=== PATIENT | male | born 1955 | race Caucasian/White ===

== ENCOUNTER → 2023-11-08 08:45 | Outpatient (BNVA) | payer MEDICARE, SELFPAY | PROVIDERS: PCP Family Medicine; Visit Provider Family Medicine | DX: Z00.00 Encounter for general adult medical examination without abnormal findings (principal) | CPT/HCPCS: 80053; 80061; 84153 ==

== ENCOUNTER → 2023-11-14 14:30 | Outpatient (BNVA) | payer MEDICARE, SELFPAY | PROVIDERS: PCP Family Medicine; Referring Provider Family Medicine; Visit Provider Surgery | DX: Z12.11 Encounter for screening for malignant neoplasm of colon (principal) | CPT/HCPCS: 99024; 99203 ==

== ENCOUNTER → 2023-11-15 10:21 | Outpatient (BNVA) | payer MEDICARE, SELFPAY | PROVIDERS: PCP Family Medicine; Visit Provider Family Medicine | DX: R73.9 Hyperglycemia, unspecified (principal) | CPT/HCPCS: 83036 ==

== ENCOUNTER 2024-01-30 08:45 | Day surgery (SDC) | payer MEDICARE, SELFPAY ==
[2024-01-30 09:04] VITALS: BP 141/80; PULSE 73; RESP 16; TEMP 36.2; O2SAT 99; BMI 23.7
--- NOTE | 2024-01-30 09:09 | ANES.PREANE2 ---
Pre-Anesthetic Assessment Height/Weight: Height 1.88 m Weight 83.915 kg Temp Pulse Resp BP Pulse Ox O2 Del Method 97.1 F L 73 16 141/80 99 Room Air 01/30/24 09:04 01/30/24 09:04 01/30/24 09:04 01/30/24 09:04 01/30/24 09:04 01/30/24 09:04 Preop Diagnosis: Screening Operation Date: 01/30/24 09:40 Proposed Procedures p 85354 colon G0121 screen colon a risk Z12.11(Not Applicable) - Preet Marshall MD Familial anesthetic complications: None Was Beta Guillermo taken within 24 hours: N/A Was Clonidine taken within 24 hours: N/A Last intake: Intake Last Liquid Date 01/29/24 Last Liquid Time 23:30 Last Solid Date 01/29/24 Last Solid Time 10:00 Social Alcohol (2-4 beers/day) and Tobacco 1 pack(s) per day Exam alert, oriented x 3, clear to auscultation bilaterally and regular rate & rhythm Airway Submandibular: within normal limits Cervical ROM: within normal limits Mallampati: Class II Dentition: chipped (Broken) Comments: Comments: Missing teeth/poor dentition History/ROS No significant history except as noted and No significant complaints Pulmonary Cough and Exertional Dyspnea CV/HEM Coronary Artery Disease and Hypertension None reported Hepatic None reported GI None reported Metabolic Diabetes Mellitus and Hyperlipidemia Musc/sk Lower Back Pain and Osteoarthritis/DJD Neuropsych Neuropathy Anesthetic Plan ASA status: 2 Anesthesia: Anesthesia Evaluation, General and MAC Risk of > 500 ml blood loss (7ml/kg in children): No Medications/Allergies Home Medications Medication Instructions Recorded Confirmed Last Taken Type No Known Home Medications 11/07/23 01/28/24 Unknown History Allergies Allergy/AdvReac Type Severity Reaction Status Date / Time No Known Allergies Allergy Verified 01/28/24 08:31 REPLACED BY [facility] Anesthesia Medical History (Updated 12/24/23 @ 19:40 by Jose Denson MD) Diabetes mellitus type 2, controlled Family History (Updated 11/14/23 @ 15:12 by CARLEY Ellis) Father Diabetes Cancer colon Mother Parkinson disease Sister Cancer Brain cancer Social History (Updated 11/14/23 @ 15:13 by CARLEY Ellis) Smoking and tobacco/nicotine status: current every day tobacco/nicotine user Quit status (tobacco/nicotine): considering quitting Alcohol intake: current Alcohol intake frequency: 0-2 Drinks per Day Alcohol type: beer and hard liquor Substance/Drug Use: current Additional social history: cbd gummies Data Anesthesia Cardiac Studies: No Data to Display
[2024-01-30] MEDS: sodium chloride 0.9% 1,000 ML 30 ML IV (09:12)
--- NOTE | 2024-01-30 09:45 | W.PM.OPSFHP ---
Same Day Surgery H&P Indication for Procedure/HPI DATE OF PROCEDURE: January 30, 2024 CHIEF COMPLAINT/INDICATIONFOR SURGICAL PROCEDURE: need for screening colonoscopy PREOP DIAGNOSIS: Screening PLANNED PROCEDURE: Operation Date: 01/30/24 09:40 Proposed Procedures p 09752 colon G0121 screen colon a risk Z12.11(Not Applicable) - Preet Marshall MD Medications/Allergies* Home Medications Medication Instructions Recorded Confirmed Type No Known Home Medications 11/07/23 01/28/24 History Allergies/Adverse Reactions Allergy/AdvReac Type Severity Reaction Status Date / Time No Known Allergies Allergy Verified 01/28/24 08:31 Current Medications: Generic Name Dose Route Start Last Admin Trade Name Freq PRN Reason Stop Dose Admin Sodium Chloride 1,000 mls @ 30 mls/hr 01/30/24 09:00 01/30/24 09:12 Sodium Chloride 0.9% IV 30 mls/hr .Q24H ASHU Administration Pertinent History/Comorbid Conditions* Medical History (Updated 12/24/23 @ 19:40 by oJse Denson MD) Diabetes mellitus type 2, controlled Family History (Updated 11/14/23 @ 15:12 by CARLEY Ellis) Brain cancer Sister Diabetes Father Cancer Father colon Sister Parkinson disease Mother Social History Smoking and tobacco/nicotine status: current every day tobacco/nicotine user Quit status (tobacco/nicotine): considering quitting Alcohol intake: current Alcohol intake frequency: 0-2 Drinks per Day Alcohol type: beer and hard liquor Substance/Drug Use: current Additional social history: cbd gummies Pertinent Exam Findings alert, oriented x 3 and clear to auscultation bilaterally Recommendations Surgery/Procedure today Coding Level of Care Code Acute Code for Chg Izaiah
[2024-01-30 11:07] VITALS: BP 111/69; PULSE 53; RESP 20; TEMP 36.1; O2SAT 100
[2024-01-30 11:20] VITALS: BP 114/69; PULSE 62; RESP 18; O2SAT 100
--- NOTE | 2024-01-30 14:24 | ANE.PACU2 ---
Inpatient post-anesthesia follow up: Airway intact: Yes Vital signs: Temperature 97 F Pulse Rate 62 Respiratory Rate 18 Blood Pressure 114/69 Pulse Oximetry 100 Oxygen Delivery Me thod Room Air Oxygen Flow Rate 2 Fraction of Inspir ed Oxygen Hydration adequate: Yes Nausea and vomiting: No Pain level: 2 Mental status: Baseline
== END 2024-01-30 11:45 | disposition home or self-care (01) ==
PROVIDERS: PCP Family Medicine; Visit Provider Surgery
PROC: 0DJD8ZZ Inspection of Lower Intestinal Tract, Via Natural or Artificial Opening Endoscopic (ICD-10-PCS; CPT 45378; principal; 2024-01-30 09:40)
DX: Z12.11 Encounter for screening for malignant neoplasm of colon (principal); D12.4 Benign neoplasm of descending colon; D12.5 Benign neoplasm of sigmoid colon; D12.8 Benign neoplasm of rectum; F17.200 Nicotine dependence, unspecified, uncomplicated; I25.10 Atherosclerotic heart disease of native coronary artery without angina pectoris; I10 Essential (primary) hypertension; E78.5 Hyperlipidemia, unspecified; E11.40 Type 2 diabetes mellitus with diabetic neuropathy, unspecified
CPT/HCPCS: 45380; 45385; 88305; J2704; J7030

== ENCOUNTER → 2024-02-12 09:06 | Outpatient (BNVA) | payer MEDICARE, SELFPAY | PROVIDERS: PCP Family Medicine; Visit Provider Surgery | DX: Z09 Encounter for follow-up examination after completed treatment for conditions other than malignant neoplasm (principal) | CPT/HCPCS: 99213 ==

== ENCOUNTER → 2024-03-03 12:21 | Outpatient (BNVA) | payer MEDICARE, SELFPAY | PROVIDERS: PCP Family Medicine; Visit Provider Family Medicine | DX: R73.9 Hyperglycemia, unspecified (principal) | CPT/HCPCS: 83036 ==

== ENCOUNTER → 2024-09-01 10:07 | Outpatient (BNVA) | payer MEDICARE, SELFPAY | PROVIDERS: PCP Family Medicine; Visit Provider Family Medicine | DX: I10 Essential (primary) hypertension (principal); N18.9 Chronic kidney disease, unspecified; E11.9 Type 2 diabetes mellitus without complications | CPT/HCPCS: 80053; 80061; 83036; 85025 ==

== ENCOUNTER → 2024-09-08 09:06 | Outpatient (BNVA) | payer MEDICARE, SELFPAY | PROVIDERS: PCP Family Medicine; Visit Provider Family Medicine | DX: D69.6 Thrombocytopenia, unspecified (principal); E11.65 Type 2 diabetes mellitus with hyperglycemia | CPT/HCPCS: 80053; 80061; 80503; 83036; 85007; 85027 ==

== ENCOUNTER 2024-09-28 13:38 | Oncology outpatient (recurring) (ONCR) | payer MEDICARE, SELFPAY ==
[2024-09-28 14:06] LABS: Basophils % 0.4 %; Eosinophils # 0.1 10^3/uL (0.0-0.8); Hematocrit 39.4 % (37-53); Lymphocytes # 1.4 10^3/uL (0.8-4.8); Lymphocytes % 25.6 %; Mean Corpuscular HGB Conc 33.2 g/dL (30-55); Mean Corpuscular Volume 96.3 fl (82-101); Mean Platelet Volume 12.6 fL (7.4-10.4); Monocytes # 0.5 10^3/uL (0.2-0.9); Monocytes % 8.5 %; Neutrophils # 3.55 10^3/uL (1.8-7.7); Neutrophils % 63.1 %; Nucleated Red Blood Cells % 0 %; Platelet Count 130 10^3/cmm (157-399); Red Blood Count 4.09 10^6/uL (3.85-5.65); Red Cell Distribution Width 14.3 % (12.1-15.1); White Blood Count 5.62 10^3/uL (3.29-11.43)
[2024-09-28 15:26] LABS: Alanine Aminotransferase 32 U/L (0-41); Albumin Level 3.6 g/dL (3.5-5.2); Alkaline Phosphatase 73 U/L (40-130); Anion Gap 12.2 (5-19); Aspartate Amino Transferase 25 U/L (0-40); Blood Urea Nitrogen 13 mg/dL (8-23); Calcium 8.7 mg/dL (8.5-10.5); Carbon Dioxide 25 mmol/L (22-29); Chloride 98 mmol/L (98-107); Creatinine Clr Calc Pharmacy 95.0095; Globulin 4.5 g/dL (1.3-4.6); Glomerular Filtration Rate 84.2 mL/min (90-130); Glucose 252 mg/dL (65-115); Lactate Dehydrogenase 192 U/L (135-225); Osmolality Calculated 281 mOsm/kg (285-295); Potassium 4.2 mmol/L (3.5-5.1); Sodium 131 mmol/L (136-145); Total Bilirubin 0.7 mg/dL (0.15-1.2); Total Protein 8.1 g/dL (6.6-8.7)
== END 2024-10-01 23:59 | disposition home or self-care (01) ==
PROVIDERS: PCP Family Medicine; Visit Provider Internal Medicine Hematology & Oncology
DX: D69.6 Thrombocytopenia, unspecified (principal)
CPT/HCPCS: 36415; 80053; 83010; 83615; 85025; 99204

== ENCOUNTER 2024-11-30 11:00 | Oncology outpatient (recurring) (ONCR) | payer MEDICARE, SELFPAY ==
[2024-11-30 11:45] LABS: Basophils % 0.5 %; Eosinophils # 0.1 10^3/uL (0.0-0.8); Eosinophils % 0.9 %; Hematocrit 38.7 % (37-53); Lymphocytes # 1.5 10^3/uL (0.8-4.8); Lymphocytes % 26.5 %; Mean Corpuscular HGB Conc 32.8 g/dL (30-55); Mean Corpuscular Hemoglobin 31.4 pg (27-33); Mean Corpuscular Volume 95.6 fl (82-101); Mean Platelet Volume 12.8 fL (7.4-10.4); Monocytes # 0.5 10^3/uL (0.2-0.9); Monocytes % 8.4 %; Neutrophils # 3.53 10^3/uL (1.8-7.7); Neutrophils % 63.2 %; Nucleated Red Blood Cells % 0 %; Platelet Count 94 10^3/cmm (157-399); Red Blood Count 4.05 10^6/uL (3.85-5.65); Red Cell Distribution Width 13.8 % (12.1-15.1); White Blood Count 5.59 10^3/uL (3.29-11.43)
[2024-11-30 12:03] LABS: Alanine Aminotransferase 30 U/L (0-41); Albumin Level 3.6 g/dL (3.5-5.2); Alkaline Phosphatase 72 U/L (40-130); Anion Gap 13.3 (5-19); Aspartate Amino Transferase 39 U/L (0-40); Blood Urea Nitrogen 13 mg/dL (8-23); Calcium 9.5 mg/dL (8.5-10.5); Carbon Dioxide 24 mmol/L (22-29); Chloride 99 mmol/L (98-107); Creatinine Clr Calc Pharmacy 93.5842; Glomerular Filtration Rate 84.2 mL/min (90-130); Glucose 217 mg/dL (65-115); Osmolality Calculated 281 mOsm/kg (285-295); Potassium 4.3 mmol/L (3.5-5.1); Sodium 132 mmol/L (136-145); Total Bilirubin 0.8 mg/dL (0.15-1.2); Total Protein 8.6 g/dL (6.6-8.7)
[2024-11-30 12:23] LABS: Slide Review Slide Review Perform
== END 2024-12-01 23:59 | disposition home or self-care (01) ==
PROVIDERS: PCP Family Medicine; Visit Provider Internal Medicine Hematology & Oncology
DX: D69.6 Thrombocytopenia, unspecified (principal)
CPT/HCPCS: 36415; 80053; 83010; 85025; 99214

== ENCOUNTER → 2024-12-08 10:20 | Outpatient (BNVA) | payer MEDICARE, SELFPAY | PROVIDERS: PCP Family Medicine; Visit Provider Family Medicine | DX: R73.9 Hyperglycemia, unspecified (principal) | CPT/HCPCS: 83036 ==

== ENCOUNTER 2025-01-18 08:00 | Oncology outpatient (recurring) (ONCR) | payer MEDICARE, SELFPAY ==
[2025-01-18 08:27] LABS: Basophils % 0.4 %; Eosinophils # 0.1 10^3/uL (0.0-0.8); Eosinophils % 2.9 %; Hematocrit 39.2 % (37-53); Lymphocytes # 1.2 10^3/uL (0.8-4.8); Lymphocytes % 25.5 %; Mean Corpuscular HGB Conc 32.9 g/dL (30-55); Mean Corpuscular Hemoglobin 32.2 pg (27-33); Mean Corpuscular Volume 97.8 fl (82-101); Mean Platelet Volume 12.2 fL (7.4-10.4); Monocytes # 0.6 10^3/uL (0.2-0.9); Monocytes % 11.3 %; Neutrophils % 59.5 %; Nucleated Red Blood Cells % 0 %; Platelet Count 109 10^3/cmm (157-399); Red Blood Count 4.01 10^6/uL (3.85-5.65); Red Cell Distribution Width 15.7 % (12.1-15.1); White Blood Count 4.87 10^3/uL (3.29-11.43)
[2025-01-18 08:45] LABS: Alanine Aminotransferase 34 U/L (0-41); Albumin Level 3.6 g/dL (3.5-5.2); Alkaline Phosphatase 76 U/L (40-130); Anion Gap 15.2 (5-19); Aspartate Amino Transferase 36 U/L (0-40); Blood Urea Nitrogen 13 mg/dL (8-23); Calcium 9.4 mg/dL (8.5-10.5); Carbon Dioxide 25 mmol/L (22-29); Chloride 99 mmol/L (98-107); Creatinine Clr Calc Pharmacy 108.4952; Globulin 5.3 g/dL (1.3-4.6); Glomerular Filtration Rate 96.4 mL/min (90-130); Glucose 194 mg/dL (65-115); Osmolality Calculated 285 mOsm/kg (285-295); Potassium 4.2 mmol/L (3.5-5.1); Sodium 135 mmol/L (136-145); Total Bilirubin 1.1 mg/dL (0.15-1.2); Total Protein 8.9 g/dL (6.6-8.7)
== END 2025-01-29 23:59 | disposition home or self-care (01) ==
PROVIDERS: PCP Family Medicine; Visit Provider Internal Medicine Medical Oncology
DX: D69.6 Thrombocytopenia, unspecified (principal); Z87.891 Personal history of nicotine dependence; F10.90 Alcohol use, unspecified, uncomplicated
CPT/HCPCS: 36415; 80053; 85025; 99214

== ENCOUNTER → 2025-03-09 09:06 | Outpatient (BNVA) | payer MEDICARE, SELFPAY | PROVIDERS: PCP Family Medicine; Visit Provider Family Medicine | DX: E11.9 Type 2 diabetes mellitus without complications (principal); D69.6 Thrombocytopenia, unspecified | CPT/HCPCS: 80053; 83036; 85025 ==

== ENCOUNTER 2025-07-19 08:07 | Oncology outpatient (recurring) (ONCR) | payer MEDICARE, SELFPAY ==
[2025-07-19 08:36] LABS: Hematocrit 35.1 % (37-53); Hemoglobin 11.30 g/dL (11.27-16.99); Mean Corpuscular HGB Conc 32.2 g/dL (30-55); Mean Corpuscular Hemoglobin 31.6 pg (27-33); Mean Corpuscular Volume 98.0 fl (82-101); Nucleated Red Blood Cells % 0.4 %; Platelet Count 90 10^3/cmm (157-399); Red Blood Count 3.58 10^6/uL (3.85-5.65); White Blood Count 4.74 10^3/uL (3.29-11.43)
[2025-07-19 09:07] LABS: Slide Review Slide Review Perform
[2025-07-19 09:19] LABS: Alanine Aminotransferase 51 U/L (0-41); Albumin Level 3.4 g/dL (3.5-5.2); Alkaline Phosphatase 88 U/L (40-130); Anion Gap 10.2 (5-19); Aspartate Amino Transferase 64 U/L (0-40); Blood Urea Nitrogen 16 mg/dL (8-23); Calcium 9.3 mg/dL (8.5-10.5); Carbon Dioxide 24 mmol/L (22-29); Chloride 103 mmol/L (98-107); Creatinine Clr Calc Pharmacy 86.7962; Globulin 4.7 g/dL (1.3-4.6); Glucose 179 mg/dL (65-115); Osmolality Calculated 282 mOsm/kg (285-295); Potassium 4.2 mmol/L (3.5-5.1); Sodium 133 mmol/L (136-145); Total Protein 8.1 g/dL (6.6-8.7); Vitamin B12 843 pg/mL (232-1245)
== END 2025-08-01 23:59 | disposition home or self-care (01) ==
PROVIDERS: PCP Family Medicine; Visit Provider Internal Medicine Medical Oncology
DX: D69.6 Thrombocytopenia, unspecified (principal); Z87.891 Personal history of nicotine dependence; F10.90 Alcohol use, unspecified, uncomplicated; R16.0 Hepatomegaly, not elsewhere classified; R14.0 Abdominal distension (gaseous)
CPT/HCPCS: 36415; 80053; 82607; 82746; 85025; 99214

== ENCOUNTER → 2025-09-14 08:26 | Outpatient (BNVA) | payer MEDICARE, SELFPAY | PROVIDERS: PCP Family Medicine; Visit Provider Family Medicine | DX: Z00.00 Encounter for general adult medical examination without abnormal findings (principal); E11.9 Type 2 diabetes mellitus without complications; D69.6 Thrombocytopenia, unspecified; R16.0 Hepatomegaly, not elsewhere classified | CPT/HCPCS: 80053; 80061; 83036; 85025; 86140 ==

== ENCOUNTER 2025-09-22 12:48 | Oncology outpatient (recurring) (ONCR) | payer MEDICARE, SELFPAY ==
--- NOTE | 2025-09-22 13:00 | CT_ITS ---
WS: [id number] CT ABDOMEN AND PELVIS WITH CONTRAST HISTORY: abd pain/ bloating TECHNIQUE: Imaging performed of the abdomen and pelvis with IV contrast. Single phase imaging of the abdomen. Coronal and sagittal reformats are submitted. All CT scans at [facility] use at least one of these dose optimization techniques: automated exposure control; mA and/or kV adjustment per patient size (includes targeted exams where dose is matched to clinical indication); or iterative reconstruction. IV CONTRAST: Omnipaque 350; 100 mL IV. Oral contrast: Yes. DLP: 709.32 mGy.cm COMPARISON: None available. Lower thorax: Pleural-based nodule RIGHT lower lobe measures 1.5 cm. There is mild volume loss and curvilinear densities adjacent to this nodule. This could be an area of atelectasis but will need to be further evaluated. There is a soft tissue mass in the IVC measuring 4.1 x 2.8 cm. No hiatal hernia. Liver/biliary system: Small shrunken cirrhotic liver. No hypervascular mass identified. Low-attenuation 8 mm nodule along the falciform ligament. Portal vein appears patent. The soft tissue mass centered in the IVC does extend into the central hepatic veins. Partial occlusion of the proximal hepatic veins. Budd-Chiari syndrome should be considered. Gallbladder: Normally distended gallbladder with cholelithiasis. Pancreas: Normal size pancreas and pancreatic duct. No adjacent inflammation. Spleen: Normal size spleen. No mass or infarct. Adrenal glands: Normal. Right kidney: Normal. Left kidney: Normal. Aorta: Mild atherosclerosis with no aneurysm. Lymphadenopathy: Mild nodularity in the omentum. There are a few small scattered lymph nodes. Small lymph nodes in the inguinal regions. Free fluid: There is a. GI tract: No GI tract obstruction. There is a peripherally calcified mass in the RIGHT lower quadrant measuring 3.4 x 4.1 cm. This mass is closely associated with the distal small bowel. The appendix is not definitely identified. There is omental nodularity and soft tissue prominence. Mild scalloping along the surfaces of the ascites. Mild nodularity and thickening of the pararenal fascia and along the paracolic gutters. Abdominal wall: Unremarkable abdominal wall. No hernia. Pelvis: Free fluid in the pelvis. Urinary bladder is not distended. Bladder is being compressed by the ascites. Bones: Anterior wedging of T12 with a Schmorl's node. CT/CT abdomen pelvis w con* [id number] IMPRESSION: 1. Soft tissue mass measuring 4.1 x 2.8 cm in the IVC. There is slight extensi on from the IVC into the proximal hepatic veins. There is slight protrusion int o the RIGHT atrium. Differential includes bland thrombus, tumor thrombus or lei omyosarcoma. Budd-Chiari syndrome should be considered. Recommend evaluation by cardiology. 2. Large amount of ascites within the abdomen and pelvis. 3. Cirrhotic appearing liver. 4. Peripherally calcified cystic mass in the RIGHT lower quadrant measures 3.4 x 4.1 cm. This needs to be further evaluated for etiology. This could be a muc ocele of the appendix. Possibly rupture resulting in mucinous ascites. There is some scalloping of the margins of the ascites. Omental thickening and caking m ay be due to pseudomyxoma peritonei or neoplasm. The omental thickening can als o be noted with edema and infection. Surgical evaluation suggested. 5. 8 mm low-attenuation nodule in the falciform ligament will need to be furth er evaluated for possible malignancy. 6. Cholelithiasis without acute cholecystitis. 7. RIGHT lower lobe pleural-based pulmonary nodule measures 1.5 cm with adjace nt stranding. This may be rounded atelectasis but neoplasm needs to be excluded . Notified Jose Denson MD at 09/23/2025 9:07 AM.
[2025-09-22] MEDS: iohexol 350 mg/mL 500 mL Btl (per mL) PO (13:37)
[2025-09-22] MEDS: iohexol 350 mg/mL 500 mL Btl (per mL) IV (14:04)
== END 2025-10-01 23:59 | disposition home or self-care (01) ==
PROVIDERS: PCP Family Medicine; Visit Provider Family Medicine
DX: D69.6 Thrombocytopenia, unspecified (principal); Z87.891 Personal history of nicotine dependence; F10.90 Alcohol use, unspecified, uncomplicated; R16.0 Hepatomegaly, not elsewhere classified; R14.0 Abdominal distension (gaseous)
CPT/HCPCS: 74177

== ENCOUNTER 2025-11-08 09:31 | Oncology outpatient (recurring) (ONCR) | payer MEDICARE, SELFPAY ==
[2025-11-08 09:49] LABS: Hematocrit 30.3 % (37-53); Hemoglobin 9.80 g/dL (11.27-16.99); Mean Corpuscular HGB Conc 32.3 g/dL (30-55); Mean Corpuscular Hemoglobin 34.0 pg (27-33); Mean Corpuscular Volume 105.2 fl (82-101); Nucleated Red Blood Cells % 0.2 %; Platelet Count 193 10^3/cmm (157-399); Red Blood Count 2.88 10^6/uL (3.85-5.65); White Blood Count 9.14 10^3/uL (3.29-11.43)
[2025-11-08 10:11] LABS: Alanine Aminotransferase 43 U/L (0-41); Albumin Level 2.9 g/dL (3.5-5.2); Alkaline Phosphatase 106 U/L (40-130); Anion Gap 15.7 (5-19); Aspartate Amino Transferase 73 U/L (0-40); Blood Urea Nitrogen 23 mg/dL (8-23); Calcium 8.9 mg/dL (8.5-10.5); Carbon Dioxide 21 mmol/L (22-29); Chloride 99 mmol/L (98-107); Globulin 6.5 g/dL (1.3-4.6); Glucose 225 mg/dL (65-115); Osmolality Calculated 283 mOsm/kg (285-295); Potassium 4.7 mmol/L (3.5-5.1); Sodium 131 mmol/L (136-145); Total Protein 9.4 g/dL (6.6-8.7)
== END 2025-12-01 23:59 | disposition home or self-care (01) ==
PROVIDERS: PCP Family Medicine; Visit Provider Internal Medicine Medical Oncology
DX: D69.6 Thrombocytopenia, unspecified (principal); Z87.891 Personal history of nicotine dependence; F10.90 Alcohol use, unspecified, uncomplicated; R16.0 Hepatomegaly, not elsewhere classified; R14.0 Abdominal distension (gaseous); M79.9 Soft tissue disorder, unspecified; R18.8 Other ascites; R93.5 Abnormal findings on diagnostic imaging of other abdominal regions, including retroperitoneum; K80.20 Calculus of gallbladder without cholecystitis without obstruction; J94.8 Other specified pleural conditions; R93.2 Abnormal findings on diagnostic imaging of liver and biliary tract; K74.60 Unspecified cirrhosis of liver; K76.89 Other specified diseases of liver; I70.0 Atherosclerosis of aorta; R59.0 Localized enlarged lymph nodes; M48.54XA Collapsed vertebra, not elsewhere classified, thoracic region, initial encounter for fracture; M51.44 Schmorl's nodes, thoracic region
CPT/HCPCS: 36415; 80053; 85025; 99214

== ENCOUNTER → 2025-11-09 10:42 | Day surgery (SDC) | payer MEDICARE, SELFPAY ==
--- NOTE | 2025-11-09 11:33 | US_ITS ---
WS: [id number] ULTRASOUND-GUIDED PARACENTESIS CLINICAL INFORMATION: malignant neoplasm of the liver COMPARISON: None. Procedure Informed consent: The risks, benefits, and alternatives of the procedure were discussed with the patient. Verbal and written consent was obtained. Timeout: A timeout was performed to confirm the correct patient, procedure, and site. Preparation: A suitable skin site was identified. The patient was prepped and draped in usual sterile fashion. Lidocaine 1% was used for local anesthesia. Catheter: 4 [employer] [place] One-step KnCMinereh catheter. Side: Left Lower quadrant. Fluid Volume: 8000 ml Color: Clear yellow DISPOSITION: Discarded safely. Complications: None. Patient disposition: Discharged from the department in stable condition. US/US paracentesis abd w [id number] IMPRESSION: Uncomplicated ultrasound-guided paracentesis. Removal of 8000 cc
[2025-11-09 11:52] VITALS: BP 117/80; PULSE 89; RESP 18; TEMP 36.3; O2SAT 97; BMI 25.4
== END ==
PROVIDERS: Radiology Neuroradiology; PCP Family Medicine; Visit Provider Internal Medicine Medical Oncology
PROC: (CPT 49082; principal; 2025-11-09 13:00)
DX: C22.9 Malignant neoplasm of liver, not specified as primary or secondary (principal)
CPT/HCPCS: 49083

== ENCOUNTER 2025-11-23 11:29 | Day surgery (SDC) | payer MEDICARE, SELFPAY ==
--- NOTE | 2025-11-23 11:35 | US_ITS ---
WS: [id number] ULTRASOUND-GUIDED PARACENTESIS CLINICAL INFORMATION: liver cell carcinoma, ascites COMPARISON: None. Procedure Informed consent: The risks, benefits, and alternatives of the procedure were discussed with the patient. Verbal and written consent was obtained. Timeout: A timeout was performed to confirm the correct patient, procedure, and site. Preparation: A suitable skin site was identified. The patient was prepped and draped in usual sterile fashion. Lidocaine 1% was used for local anesthesia. Catheter: 4 [employer] One-step [employer] [place] ABeh catheter. Side: LEFT lower quadrant. Fluid Volume: 10,000 ml Color: Clear yellow DISPOSITION: Discarded safely. Complications: None. Patient disposition: Discharged from the department in stable condition. US/US paracentesis abd w [id number] IMPRESSION: Uncomplicated ultrasound-guided paracentesis. Removal of 10,000 cc
[2025-11-23 11:40] VITALS: BP 121/81; PULSE 90; RESP 16; TEMP 36.4; O2SAT 97; BMI 24.0
== END 2025-11-23 13:22 | disposition home or self-care (01) ==
PROVIDERS: PCP Family Medicine; Visit Provider Internal Medicine Medical Oncology
PROC: (CPT 49082; principal; 2025-11-23 13:30)
DX: C22.0 Liver cell carcinoma (principal); R18.8 Other ascites
CPT/HCPCS: 49083